=== PATIENT | male | born 1990 | race American Indian/Alaskan Native ===

== ENCOUNTER 2016-10-06 05:18 | Emergency (ER) | payer SELFPAY ==
[2016-10-06] MEDS ORDERED: TYLENOL ONE (05:45)
[2016-10-06 05:55] VITALS: BP 130/87
[2016-10-06] MEDS ORDERED: TYLENOL PO ONE (05:55)
== END 2016-10-06 06:46 | disposition left against medical advice (07) ==
LOC: ED 05:18
DX: R68.84 Jaw pain (principal); Z53.21 Procedure and treatment not carried out due to patient leaving prior to being seen by health care provider

== ENCOUNTER 2016-11-16 09:32 | Emergency (ER) | payer OTHER ==
[2016-11-16 09:53] VITALS: BP 136/91
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
== END 2016-11-16 10:33 | disposition home or self-care (01) ==
LOC: ED 09:32
DX: S46.911A Strain of unspecified muscle, fascia and tendon at shoulder and upper arm level, right arm, initial encounter (principal); V43.62XA Car passenger injured in collision with other type car in traffic accident, initial encounter; W22.12XA Striking against or struck by front passenger side automobile airbag, initial encounter; Y93.89 Activity, other specified; Y99.9 Unspecified external cause status; Y92.410 Unspecified street and highway as the place of occurrence of the external cause
CPT/HCPCS: 99282

== ENCOUNTER 2016-11-22 10:46 | Emergency (ER) | payer SELFPAY ==
[2016-11-22 11:20] VITALS: BP 142/93
[2016-11-22] MEDS ORDERED: DELTASONE PO ONE (12:35)
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
== END 2016-11-22 13:37 | disposition home or self-care (01) ==
LOC: ED 10:46
DX: S39.012D Strain of muscle, fascia and tendon of lower back, subsequent encounter (principal); M62.830 Muscle spasm of back; F12.10 Cannabis abuse, uncomplicated; Z87.891 Personal history of nicotine dependence; V49.59XD Passenger injured in collision with other motor vehicles in traffic accident, subsequent encounter; Y93.9 Activity, unspecified; Y92.9 Unspecified place or not applicable; Y99.9 Unspecified external cause status
CPT/HCPCS: 72100; 99283; J7512

== ENCOUNTER 2016-12-18 04:24 | Emergency (ER) | payer OTHER ==
[2016-12-18 05:33] VITALS: BP 148/96
--- NOTE | 2016-12-18 06:28 | Emergency Department Report ---
HPI - General Chief Complaint: Urogenital-Male Time Seen by Provider: 12/18/16 05:31 - HPI HPI: 26-year-old male presents easy complaining of penile discharge for the past 2 weeks. Patient states prior to that he had had unprotected sex. His partner. Patient states he he's having urinary frequency and has that frequently. Patient also relates aching this penis. Patient denies fevers/chills/nausea/ vomiting/dysuria/abdominal pain/rectal complaint/Cordarone pain or swelling. ED Past Medical Hx - Past Medical History Previous Medical History?: No Additional medical history: back - Surgical History Past Surgical History?: No - Social History Smoking Status: Never Smoker Substance Use Type: None - Medications Home Medications: Home Medications Medication Instructions Recorded Confirmed Last Taken Type Ibuprofen [Motrin 800 MG tab] 800 mg PO Q8HR PRN #30 tablet 11/16/16 Unknown Rx methOCARBAMOL [Robaxin TAB] 500 mg PO Q8H PRN #15 tab 11/16/16 Unknown Rx methylPREDNISolone [Medrol] 4 mg PO DAILY #1 tab.ds.pk 11/22/16 Unknown Rx traMADol [Ultram 50 MG tab] 50 mg PO Q6HR PRN #15 tablet 11/22/16 Unknown Rx Sulfamethoxazole/Trimethoprim 1 each PO BID #14 tablet 12/18/16 Unknown Rx [Bactrim DS TAB] ED Review of Systems ROS: Stated complaint: PENILE DISCHARGE Other details as noted in HPI Constitutional: denies: chills, fever Eyes: denies: eye pain, eye discharge, vision change ENT: denies: ear pain, throat pain Respiratory: denies: cough, shortness of breath, wheezing Cardiovascular: denies: chest pain, palpitations Endocrine: no symptoms reported Gastrointestinal: denies: abdominal pain, nausea, diarrhea Genitourinary: frequency, discharge. denies: urgency, dysuria, hematuria, testicular pain, testicular mass Musculoskeletal: denies: back pain, joint swelling, arthralgia Skin: denies: rash, lesions Neurological: denies: headache, weakness, paresthesias Psychiatric: denies: anxiety, depression Hematological/Lymphatic: denies: easy bleeding, easy bruising Physical Exam - Physical Exam Vital Signs: Vital Signs 12/18/16 05:11 Temperature 98 F Pulse Rate 85 Respiratory 18 Rate Blood Pressure 148/96 [Right] O2 Sat by Pulse 100 Oximetry Physical Exam: GENERAL: Alert and oriented x3, no apparent distress, Normal Gait, atraumatic. HEAD: Head is normocephalic and a-traumatic. NECK: Supple. Non edematous, No carotid bruits. No lymphadenopathy or thyromegaly. No C-spine tenderness LUNGS: Symetrical with respiration, No wheezing, no rales or crackles, CTAB. HEART: S1, S2 present, regular rate and rhythm without murmur, no rubs, no gallops. ABDOMEN: No organomegaly was noted,Positive bowel sounds, soft, and non- distended. . Nontender to palpation on all Quadrants, NO CVA tenderness. UROGENITAL: No scrotal mass, Scrotum non tender to palpation bilaterally, no hernia, no scars or penile discharge. SKIN: Warm and dry, No lesions, No ulceration or induration present. ED Course Vital Signs 12/18/16 05:11 Temperature 98 F Pulse Rate 85 Respiratory 18 Rate Blood Pressure 148/96 [Right] O2 Sat by Pulse 100 Oximetry ED Medical Decision Making - Medical Decision Making 26-year-old male presents with STD exposure. ED course: Analysis and gonorrhea and Chlamydia cultures obtained. Urinalysis positive for leukorrhea Patient received 250 mg of Rocephin, azithromycin 1 g, Flagyl 2 g. Discussed with patient possible STD due to exposure. Discussed with patient findings and treatment Discussed prophylaxis treatment patient is to abstain from sex 7-10 days as treatment. Discussed patient partner knowledge and treatment. Discussed the follow-up with the health department for further STD testing. Patient's alert and oriented times 3. Vital signs are normal patient is in no acute discharge. Patient will be discharged home with instructions. Critical care attestation.: If time is entered above; I have spent that time in minutes in the direct care of this critically ill patient, excluding procedure time. ED Disposition Clinical Impression: STD exposure UTI (urinary tract infection) Qualifiers: Urinary tract infection type: acute cystitis Hematuria presence: with hematuria Qualified Code(s): N30.01 - Acute cystitis with hematuria Disposition: DISCHARGED TO HOME OR SELFCARE Is pt being admited?: No Does the pt Need Aspirin: No Condition: Stable Instructions: Sexually Transmitted Diseases (ED), Safe Sex (ED), Urinary Tract Infection in Men (ED) Additional Instructions: take your medication as prescribed follow-up with her primary care doctor Prescriptions: Sulfamethoxazole/Trimethoprim [Bactrim DS TAB] 1 each PO BID #14 tablet Referrals: PRIMARY CARE, [Primary Care Provider] - 3-5 Days [facility] [Outside] - 3-5 Days [facility] [Outside] - 3[facility] Days [facility] - 3-5 Days Forms: Work/School Release Form(ED) Time of Disposition: 07:00
[2016-12-18 06:55] LABS: Bilirubin,Urine NEG (Negative); Blood,Urine NEG (Negative); Ketones,Urine NEG (Negative); Leukocyte Esterase,Urine MOD (Negative); Nitrite,Urine NEG (Negative); Protein,Urine <15 mg/dL mg/dL (Negative); Urobilinogen,Urine < 2.0 mg/dL (<2.0)
[2016-12-18] MEDS ORDERED: ZITHROMAX PO ONE (06:57)
[2016-12-18] MEDS ORDERED: ROCEPHIN IM ONE (06:57)
[2016-12-18] MEDS ORDERED: FLAGYL PO ONE (06:57)
[2016-12-18] MEDS ORDERED: XYLOCAINE 1% MPF 5 mL INFILTRATI ONE (06:57)
== END 2016-12-18 07:39 | disposition home or self-care (01) ==
LOC: ED 04:24
DX: N30.01 Acute cystitis with hematuria (principal); Z20.2 Contact with and (suspected) exposure to infections with a predominantly sexual mode of transmission
CPT/HCPCS: 81001; 87591; 96372; 99283; J0696

== ENCOUNTER 2017-05-04 00:19 | Emergency (ER) | payer OTHER ==
[2017-05-04 00:32] VITALS: BP 143/91
--- NOTE | 2017-05-04 01:33 | XRay Report ---
FINAL REPORT EXAM: XR CHEST ROUTINE 2V HISTORY: upper resp TECHNIQUE: PA and lateral views of the chest were submitted. FINDINGS: Heart size and mediastinum appear normal. The lungs are clear. Pleural fluid is not seen. The bones and soft tissues appear normal. IMPRESSION: Normal chest.
--- NOTE | 2017-05-04 03:48 | Emergency Department Report ---
Upper Respiratory HPI - HPI Chief Complaint: Upper Respiratory Infection Stated Complaint: CP Time Seen by Provider: 05/04/17 03:42 Duration: 4 Days URI Symptoms: Rhinorrhea: Yes, Sore Throat: Yes, Ear Pain: Yes, Cough: Yes, Shortness of Breath: No, Sick Contacts: No, Unable to Take Fluids: No, Urine Output Abnormal: No, Listless Behavior: No - Home Meds and Allergies Home Medications: Previous Rx's Medication Instructions Recorded Last Taken Type Ibuprofen [Motrin 800 MG tab] 800 mg PO Q8HR PRN #30 tablet 11/16/16 Unknown Rx methOCARBAMOL [Robaxin TAB] 500 mg PO Q8H PRN #15 tab 11/16/16 Unknown Rx methylPREDNISolone [Medrol] 4 mg PO DAILY #1 tab.ds.pk 11/22/16 Unknown Rx traMADol [Ultram 50 MG tab] 50 mg PO Q6HR PRN #15 tablet 11/22/16 Unknown Rx Sulfamethoxazole/Trimethoprim 1 each PO BID #14 tablet 12/18/16 Unknown Rx [Bactrim DS TAB] ALBUTEROL Inhaler [ProAir HFA 2 puff IH QID PRN #1 inhalation 05/04/17 Unknown Rx Inhaler] Codeine Phosphate/Guaifenesin 5 ml PO TID PRN #120 ml 05/04/17 Unknown Rx [Guaifen-Codeine 100-10 mg/5 ml] Ibuprofen 800 mg PO TID PRN #30 tablet 05/04/17 Unknown Rx predniSONE [Deltasone] 40 mg PO QDAY #10 tab 05/04/17 Unknown Rx Allergies/Adverse Reactions: Allergies Allergy/AdvReac Type Severity Reaction Status Date / Time No Known Allergies Allergy Verified 11/16/16 09:50 ED Review of Systems ROS: Stated complaint: CP Other details as noted in HPI Constitutional: chills, malaise. denies: weakness Eyes: denies: eye pain, eye discharge, vision change ENT: ear pain, throat pain, congestion. denies: dental pain, hearing loss, epistaxis Respiratory: cough, wheezing Cardiovascular: denies: chest pain, palpitations, paroxysmal nocturnal dyspnea Endocrine: no symptoms reported Gastrointestinal: denies: abdominal pain, nausea, diarrhea Genitourinary: denies: urgency, dysuria Musculoskeletal: denies: back pain, joint swelling, arthralgia Skin: denies: rash, lesions Neurological: denies: headache, weakness, paresthesias Psychiatric: denies: anxiety, depression Hematological/Lymphatic: denies: easy bleeding, easy bruising ED Past Medical Hx - Past Medical History Previous Medical History?: No Additional medical history: back - Surgical History Past Surgical History?: No - Social History Smoking Status: Former Smoker Substance Use Type: None - Medications Home Medications: Home Medications Medication Instructions Recorded Confirmed Last Taken Type Ibuprofen [Motrin 800 MG tab] 800 mg PO Q8HR PRN #30 tablet 11/16/16 Unknown Rx methOCARBAMOL [Robaxin TAB] 500 mg PO Q8H PRN #15 tab 11/16/16 Unknown Rx methylPREDNISolone [Medrol] 4 mg PO DAILY #1 tab.ds.pk 11/22/16 Unknown Rx traMADol [Ultram 50 MG tab] 50 mg PO Q6HR PRN #15 tablet 11/22/16 Unknown Rx Sulfamethoxazole/Trimethoprim 1 each PO BID #14 tablet 12/18/16 Unknown Rx [Bactrim DS TAB] ALBUTEROL Inhaler [ProAir HFA 2 puff IH QID PRN #1 inhalation 05/04/17 Unknown Rx Inhaler] Codeine Phosphate/Guaifenesin 5 ml PO TID PRN #120 ml 05/04/17 Unknown Rx [Guaifen-Codeine 100-10 mg/5 ml] Ibuprofen 800 mg PO TID PRN #30 tablet 05/04/17 Unknown Rx predniSONE [Deltasone] 40 mg PO QDAY #10 tab 05/04/17 Unknown Rx ED Bronchiolitis Physical Exam - Exam General: Vital signs noted. No distress. Alert and acting appropriately. HEENT: Yes Pharyngeal Erythema, Yes Rhinorrhea, No Conjuctival Injection, No Dry Mucous Membranes Ear: Neither TM Bulge, Neither TM Erythema, Neither EAC Discharge Neck: No Adenopathy, No Rigidity Lungs: Yes Clear Lung Sounds, Yes Good Air Exchange, Yes Cough, No Wheezes, No Stridor, No Nasal Flaring, No Retractions, No Use of Accessory Muscles Heart: Yes Regular, No Murmur Abdomen: Yes Normal Bowel Sounds, No Tenderness, No Peritoneal Signs Skin: No Rash, No Eczema Neurologic: Alert and oriented, no deficits. Musculoskeletal: Unremarkable. ED Bronchiolitis Tests - Testing Testing: CXR: Normal/Negative (no infiltrates no opacities , normal chest xray ) ED Physical Exam - General Limitations: No Limitations General appearance: alert, in no apparent distress - Head Head exam: Present: atraumatic, normocephalic, normal inspection - Eye Eye exam: Present: normal appearance, PERRL, EOMI Pupils: Present: normal accommodation - ENT ENT exam: Present: mucous membranes moist, TM's normal bilaterally, normal external ear exam - Expanded ENT Exam Expanded Mouth exam: Present: tongue normal. Absent: muffled voice, tongue elevation, laceration Throat exam: Positive: tonsillar erythema, tonsillomegaly. Negative: tonsillar exudate, R peritonsillar mass, L peritonsillar mass - Neck Neck exam: Present: normal inspection, full ROM. Absent: tenderness, lymphadenopathy, thyromegaly - Respiratory Respiratory exam: Present: normal lung sounds bilaterally. Absent: respiratory distress, wheezes, rhonchi, stridor, chest wall tenderness, decreased breath sounds - Cardiovascular Cardiovascular Exam: Present: regular rate, normal rhythm, normal heart sounds. Absent: systolic murmur, diastolic murmur, rubs, gallop - GI/Abdominal GI/Abdominal exam: Present: soft, normal bowel sounds. Absent: distended, tenderness, guarding, rebound, rigid, organomegaly, mass, bruit, pulsatile mass , hernia - Rectal Rectal exam: Present: deferred - exam: Present: normal inspection - Extremities Exam Extremities exam: Present: normal inspection, full ROM, normal capillary refill. Absent: tenderness, pedal edema, joint swelling, calf tenderness - Back Exam Back exam: Present: normal inspection, full ROM. Absent: tenderness, CVA tenderness (R), CVA tenderness (L), muscle spasm, paraspinal tenderness, vertebral tenderness, rash noted - Neurological Exam Neurological exam: Present: alert, oriented X3, CN II-XII intact, normal gait. Absent: reflexes normal - Psychiatric Psychiatric exam: Present: normal affect, normal mood - Skin Skin exam: Present: warm, dry, intact, normal color. Absent: rash ED Course Vital Signs 05/04/17 00:27 Temperature 98.1 F Pulse Rate 86 Respiratory 18 Rate Blood Pressure 143/91 O2 Sat by Pulse 99 Oximetry ED Medical Decision Making - EKG Data EKG shows normal: sinus rhythm, axis, intervals, QRS complexes Rate: normal - Radiology Data Radiology results: image reviewed normal chest xray - Medical Decision Making pt is a 26 y/o aam with hx of bronchitis present for uri symptoms included head congestino ear and throat jose a with noc chills, malaise wheezing, pt endorses symptomx 1 week and not improving , exam: pt appears ill , cough productive white yellow thick TMs clear bilat no erythema no pain, nose; bilat turbinate erythema boggy clear post nasal drip, pharynx: moderate erythema no exudate no lesion no edema uvula midline no stridor lungs clear at this time no wheezing, CXR: normal , pt is not febrile at this time. plan: refill albuterol inhailer, prednisone, Cheratussin, ibuprofen 800 mg po tid prn pain and fever. pt verbalize agreement and understanding of same. Critical care attestation.: If time is entered above; I have spent that time in minutes in the direct care of this critically ill patient, excluding procedure time. ED Disposition Clinical Impression: Bronchitis URI (upper respiratory infection) Qualifiers: URI type: acute nasopharyngitis (common cold) Qualified Code(s): J00 - Acute nasopharyngitis [common cold] Disposition: TO HOME OR SELFCARE Is pt being admited?: No Does the pt Need Aspirin: No Condition: Good Instructions: Chronic Bronchitis (ED), Cold Symptoms (ED) Prescriptions: ALBUTEROL Inhaler [ProAir HFA Inhaler] 2 puff IH QID PRN #1 inhalation PRN Reason: Shortness Of Breath Codeine Phosphate/Guaifenesin [Guaifen-Codeine 100-10 mg/5 ml] 5 ml PO TID PRN # 120 ml PRN Reason: Cough Ibuprofen 800 mg PO TID PRN #30 tablet PRN Reason: pain fever predniSONE [Deltasone] 40 mg PO QDAY #10 tab Referrals: PRIMARY CARE, [Primary Care Provider] - 3-5 Days Forms: Work/School Release Form(ED) Time of Disposition: 04:06
== END 2017-05-04 04:15 | disposition home or self-care (01) ==
LOC: ED 00:19
DX: J00 Acute nasopharyngitis [common cold] (principal); J40 Bronchitis, not specified as acute or chronic; Z87.891 Personal history of nicotine dependence
CPT/HCPCS: 71020; 93005; 93010; 99283

== ENCOUNTER 2017-06-23 07:13 | Emergency (ER) | payer OTHER | END 2017-06-23 09:45 | disposition left against medical advice (07) | LOC: ED 07:13 | DX: Z53.21 Procedure and treatment not carried out due to patient leaving prior to being seen by health care provider (principal) ==

== ENCOUNTER 2018-08-16 16:49 | Emergency (ER) | payer SELFPAY ==
[2018-08-16 17:04] VITALS: BP 134/86
[2018-08-16] MEDS ORDERED: DELTASONE PO ONE (17:36)
[2018-08-16] MEDS ORDERED: TORADOL IM ONE (17:36)
--- NOTE | 2018-08-16 17:55 | Emergency Department Report ---
ED Neck Pain/Injury HPI - General Chief Complaint: Neck Pain/Injury Stated Complaint: NECK PAIN Time Seen by Provider: 08/16/18 17:34 Mode of arrival: Ambulatory Limitations: No Limitations - History of Present Illness Initial Comments: This is a 28-year-old male nontoxic, well nourished in appearance, no acute signs of distress presents to the ED with c/o of upper back pain. Patient stated that 4 days ago he woke up with pain and has significantly resolved still has slight pain February and is right upper back area. Patient denies any radiation of pain. Patient denies any trauma. Denies any bladder or bowel instability. Patient denies any urinary symptoms. Denies any fever, chills, nausea, vomiting, headache, stiff neck, chest pain or shortness of breath. Patient denies any numbness or tingling. Denies any allergies. Denies significant past medical history. MD Complaint: neck pain, upper back pain -: days(s) (4) Place: home Severity: mild Severity scale (0 -10): 3 Quality: aching Consistency: constant Improves With: immobilization Worsens With: movement of neck Associated Symptoms: none. denies: headache, fever, numbness, tingling, weakness, vertigo, difficulty walking, swollen glands, difficulty swallowing, nausea, vomiting Treatments Prior to Arrival: none - Related Data Previous Rx's Medication Instructions Recorded Last Taken Type Ibuprofen [Motrin 800 MG tab] 800 mg PO Q8HR PRN #30 tablet 11/16/16 Unknown Rx methOCARBAMOL [Robaxin TAB] 500 mg PO Q8H PRN #15 tab 11/16/16 Unknown Rx methylPREDNISolone [Medrol] 4 mg PO DAILY #1 tab.ds.pk 11/22/16 Unknown Rx traMADol [Ultram 50 MG tab] 50 mg PO Q6HR PRN #15 tablet 11/22/16 Unknown Rx Sulfamethoxazole/Trimethoprim 1 each PO BID #14 tablet 12/18/16 Unknown Rx [Bactrim DS TAB] ALBUTEROL Inhaler (OR & NICU) 2 puff IH QID PRN #1 inhalation 05/04/17 Unknown Rx [ProAir HFA Inhaler] Codeine Phosphate/Guaifenesin 5 ml PO TID PRN #120 ml 05/04/17 Unknown Rx [Guaifen-Codeine 100-10 mg/5 ml] Ibuprofen 800 mg PO TID PRN #30 tablet 05/04/17 Unknown Rx predniSONE [Deltasone] 40 mg PO QDAY #10 tab 05/04/17 Unknown Rx Dicyclomine [Bentyl] 10 mg PO QID PRN #30 capsule 05/16/18 Unknown Rx Ondansetron [Zofran Odt] 4 mg PO TID PRN #12 tab.rapdis 05/16/18 Unknown Rx Cyclobenzaprine [Flexeril] 10 mg PO QHS PRN #10 tablet 08/16/18 Unknown Rx Ibuprofen [Motrin] 600 mg PO Q8H PRN #20 tablet 08/16/18 Unknown Rx Allergies Allergy/AdvReac Type Severity Reaction Status Date / Time No Known Allergies Allergy Verified 11/16/16 09:50 ED Review of Systems ROS: Stated complaint: NECK PAIN Other details as noted in HPI Constitutional: denies: chills, fever Eyes: denies: eye pain, eye discharge, vision change ENT: denies: ear pain, throat pain Respiratory: denies: cough, shortness of breath, wheezing Cardiovascular: denies: chest pain, palpitations Endocrine: no symptoms reported Gastrointestinal: denies: abdominal pain, nausea, diarrhea Genitourinary: denies: urgency, dysuria Musculoskeletal: other (upper back pain). denies: back pain, joint swelling, arthralgia Skin: denies: rash, lesions Neurological: denies: headache, weakness, paresthesias Psychiatric: denies: anxiety, depression Hematological/Lymphatic: denies: easy bleeding, easy bruising ED Past Medical Hx - Past Medical History Previous Medical History?: No Additional medical history: back - Surgical History Past Surgical History?: No - Social History Smoking Status: Never Smoker Substance Use Type: Alcohol - Medications Home Medications: Home Medications Medication Instructions Recorded Confirmed Last Taken Type Ibuprofen [Motrin 800 MG tab] 800 mg PO Q8HR PRN #30 tablet 11/16/16 Unknown Rx methOCARBAMOL [Robaxin TAB] 500 mg PO Q8H PRN #15 tab 11/16/16 Unknown Rx methylPREDNISolone [Medrol] 4 mg PO DAILY #1 tab.ds.pk 11/22/16 Unknown Rx traMADol [Ultram 50 MG tab] 50 mg PO Q6HR PRN #15 tablet 11/22/16 Unknown Rx Sulfamethoxazole/Trimethoprim 1 each PO BID #14 tablet 12/18/16 Unknown Rx [Bactrim DS TAB] ALBUTEROL Inhaler (OR & NICU) 2 puff IH QID PRN #1 inhalation 05/04/17 Unknown Rx [ProAir HFA Inhaler] Codeine Phosphate/Guaifenesin 5 ml PO TID PRN #120 ml 05/04/17 Unknown Rx [Guaifen-Codeine 100-10 mg/5 ml] Ibuprofen 800 mg PO TID PRN #30 tablet 05/04/17 Unknown Rx predniSONE [Deltasone] 40 mg PO QDAY #10 tab 05/04/17 Unknown Rx Dicyclomine [Bentyl] 10 mg PO QID PRN #30 capsule 05/16/18 Unknown Rx Ondansetron [Zofran Odt] 4 mg PO TID PRN #12 tab.rapdis 05/16/18 Unknown Rx Cyclobenzaprine [Flexeril] 10 mg PO QHS PRN #10 tablet 08/16/18 Unknown Rx Ibuprofen [Motrin] 600 mg PO Q8H PRN #20 tablet 08/16/18 Unknown Rx ED Physical Exam - General Limitations: No Limitations General appearance: alert, in no apparent distress - Head Head exam: Present: atraumatic, normocephalic - Neck Neck exam: Present: normal inspection, full ROM. Absent: tenderness, meningismus, lymphadenopathy - Extremities Exam Extremities exam: Present: normal inspection, full ROM, normal capillary refill. Absent: tenderness - Back Exam Back exam: Present: normal inspection, full ROM, paraspinal tenderness (left ce rvical paraspinal). Absent: tenderness, CVA tenderness (R), CVA tenderness (L), muscle spasm, vertebral tenderness, rash noted - Expanded Back Exam Expanded Back exam: Absent: saddle anesthesia Back exam: Negative Straight Leg Raising: Right, Left - Neurological Exam Neurological exam: Present: alert, oriented X3 - Psychiatric Psychiatric exam: Present: normal affect, normal mood - Skin Skin exam: Present: warm, dry, intact, normal color. Absent: rash ED Course Vital Signs 08/16/18 17:00 Temperature 98.2 F Pulse Rate 83 Respiratory 18 Rate Blood Pressure 134/86 O2 Sat by Pulse 99 Oximetry - Reevaluation(s) Reevaluation #1: 08/16/18 18:07 Patient is speaking in full sentences with no signs of distress noted. ED Medical Decision Making - Medical Decision Making This is a 28-year-old male that presents with upper back strain. Patient is stable was examined by me. There is no spinal tenderness. There is no cauda equina syndrome during examination. No bladder or bowel instability. Patient received Toradol 60 mg IM and prednisone in the ED which stated his symptoms has resolved and subsided. Patient is discharged with muscle relaxant and Motrin. Patient was instructed not to operate any machinery while taking muscle relaxant as they cause her drowsiness. Patient was referred to Follow-up with a primary care doctor in 3-5 days or if symptoms worsen and continue return to emergency room as soon as possible. At time of discharge, the patient does not seem toxic or ill in appearance. No acute signs of distress noted. Patient agrees to discharge treatment plan of care. No further questions noted by the patient. This chart is dictated with using [employer] Dictation Program Critical care attestation.: If time is entered above; I have spent that time in minutes in the direct care of this critically ill patient, excluding procedure time. ED Disposition Clinical Impression: Muscle strain of upper back Disposition: DC-01 TO HOME OR SELFCARE Is pt being admited?: No Does the pt Need Aspirin: No Condition: Stable Instructions: Muscle Strain (ED), Cyclobenzaprine (By mouth) Additional Instructions: Follow-up with your primary care doctor in 3-5 days or if symptoms worsen such as bladder or bowel stability, chest pain, short of breath, numbness or tingling sensation in extremities, headache, dizziness, visual changes, nausea vomiting, or abdominal pain, return back to emergency room as was possible. Take ibuprofen and Flexeril as prescribed. Do not operate heavy machinery while taking Flexeril due to sedation Prescriptions: Cyclobenzaprine [Flexeril] 10 mg PO QHS PRN #10 tablet PRN Reason: Muscle Spasm Ibuprofen [Motrin] 600 mg PO Q8H PRN #20 tablet PRN Reason: Pain Referrals: PRIMARY CARE, [Referring] - 3-5 Days PRESTON VAZQUEZ MD [Staff Physician] - 3-5 Days [facility] [Outside] - 3-5 Days [facility] [Outside] - 3-5 Days Forms: Work/School Release Form(ED)
== END 2018-08-16 18:16 | disposition home or self-care (01) ==
LOC: ED 16:49
DX: S29.012A Strain of muscle and tendon of back wall of thorax, initial encounter (principal); X58.XXXA Exposure to other specified factors, initial encounter; Y93.89 Activity, other specified; Y92.89 Other specified places as the place of occurrence of the external cause; Y99.8 Other external cause status
CPT/HCPCS: 96372; 99282; J1885; J7512

== ENCOUNTER 2018-08-30 17:31 | Emergency (ER) | payer SELFPAY ==
--- NOTE | 2018-08-30 17:44 | Emergency Department Report ---
Blank Doc - Documentation Documentation: This is a 28-year-old male that presents with right sided neck pain x2 weeks. Patient is known to me and was seen by me ew weeks ago. Was treated with flexeril and motrin at discharge. Patient stated pain became better but worsened again last week. Patient stated symptoms are intermittent. Denies any injuries or trauma. This initial assessment diagnostic orders/clinical plan/treatment(s) is/are subject to change based on patient's health status, clinical progression and re- assessment by fellow clinical providers in the ED. Further treatment and workup at subsequent clinical providers discretion. Patient/guardians urged not to elope from ED s their condition may be serious if not clinically assessed and managed. Initial orders include: 1-Patient sent to [facility] for further evaluation and treatment.
[2018-08-30] MEDS ORDERED: IBUPROFEN PO ONE (18:06)
[2018-08-30] MEDS ORDERED: FLEXERIL PO ONE (18:06)
--- NOTE | 2018-08-30 18:08 | Emergency Department Report ---
ED Neck Pain/Injury HPI - General Chief Complaint: Neck Pain/Injury Stated Complaint: NECK/SHOULDER PAIN Time Seen by Provider: 08/30/18 17:40 Source: patient Mode of arrival: Ambulatory Limitations: No Limitations - History of Present Illness Initial Comments: Patient her right neck pain 3 weeks. He was here on 08/16/2018 for similar problem. He thinks he strained his muscle. Denies any injury but thinks it is only sleeps. He reports pain is 8 out of 10 and achy without any radiation of pain. Denies any nausea vomiting. Denies any neck stiffness or fever or chills. Denies any chest pain or shortness of breath. Denies any headache or any trauma. Denies any weakness to extremities. Pain is worse with movements and no alleviating factors. MD Complaint: neck pain Onset/Timin -: week(s) Place: home Radiation: right lateral Severity: severe, intermittent, similar to prior neck mel Severity scale (0 -10): 8 Quality: aching Consistency: intermittent Improves With: none Worsens With: movement of neck Context: unknown Associated Symptoms: denies: headache, fever, numbness, tingling, weakness, vertigo, difficulty walking, swollen glands, difficulty swallowing, nausea, vomiting Treatments Prior to Arrival: none - Related Data Previous Rx's Medication Instructions Recorded Last Taken Type Ibuprofen [Motrin 800 MG tab] 800 mg PO Q8HR PRN #30 tablet 11/16/16 Unknown Rx methOCARBAMOL [Robaxin TAB] 500 mg PO Q8H PRN #15 tab 11/16/16 Unknown Rx methylPREDNISolone [Medrol] 4 mg PO DAILY #1 tab.ds.pk 11/22/16 Unknown Rx traMADol [Ultram 50 MG tab] 50 mg PO Q6HR PRN #15 tablet 11/22/16 Unknown Rx Sulfamethoxazole/Trimethoprim 1 each PO BID #14 tablet 12/18/16 Unknown Rx [Bactrim DS TAB] ALBUTEROL Inhaler (OR & NICU) 2 puff IH QID PRN #1 inhalation 05/04/17 Unknown Rx [ProAir HFA Inhaler] Codeine Phosphate/Guaifenesin 5 ml PO TID PRN #120 ml 05/04/17 Unknown Rx [Guaifen-Codeine 100-10 mg/5 ml] Ibuprofen 800 mg PO TID PRN #30 tablet 05/04/17 Unknown Rx predniSONE [Deltasone] 40 mg PO QDAY #10 tab 05/04/17 Unknown Rx Dicyclomine [Bentyl] 10 mg PO QID PRN #30 capsule 05/16/18 Unknown Rx Ondansetron [Zofran Odt] 4 mg PO TID PRN #12 tab.rapdis 05/16/18 Unknown Rx Cyclobenzaprine [Flexeril] 10 mg PO QHS PRN #10 tablet 08/16/18 Unknown Rx Ibuprofen [Motrin] 600 mg PO Q8H PRN #20 tablet 08/16/18 Unknown Rx Cyclobenzaprine [Flexeril] 10 mg PO TID PRN #12 tablet 08/30/18 Unknown Rx Cyclobenzaprine [Flexeril] 10 mg PO TID PRN #12 tablet 08/30/18 Unknown Rx Ibuprofen [Motrin] 800 mg PO Q8HR PRN #12 tablet 08/30/18 Unknown Rx Ibuprofen [Motrin] 800 mg PO Q8HR PRN #12 tablet 08/30/18 Unknown Rx Allergies Allergy/AdvReac Type Severity Reaction Status Date / Time No Known Allergies Allergy Verified 11/16/16 09:50 ED Review of Systems ROS: Stated complaint: NECK/SHOULDER PAIN Other details as noted in HPI Constitutional: denies: chills Eyes: denies: eye pain, eye discharge ENT: denies: ear pain, throat pain, congestion Respiratory: denies: cough, shortness of breath, wheezing Cardiovascular: denies: chest pain, palpitations, edema, syncope Gastrointestinal: denies: abdominal pain, nausea, vomiting Musculoskeletal: myalgia. denies: back pain, joint swelling, arthralgia Skin: denies: rash Neurological: denies: headache, numbness, paresthesias, abnormal gait, vertigo ED Past Medical Hx - Past Medical History Previous Medical History?: Yes Additional medical history: back and neck pain - Surgical History Past Surgical History?: Yes Additional Surgical History: FX right hip - Family History Family history: hypertension - Social History Smoking Status: Never Smoker Substance Use Type: Alcohol - Medications Home Medications: Home Medications Medication Instructions Recorded Confirmed Last Taken Type Ibuprofen [Motrin 800 MG tab] 800 mg PO Q8HR PRN #30 tablet 11/16/16 Unknown Rx methOCARBAMOL [Robaxin TAB] 500 mg PO Q8H PRN #15 tab 11/16/16 Unknown Rx methylPREDNISolone [Medrol] 4 mg PO DAILY #1 tab.ds.pk 11/22/16 Unknown Rx traMADol [Ultram 50 MG tab] 50 mg PO Q6HR PRN #15 tablet 11/22/16 Unknown Rx Sulfamethoxazole/Trimethoprim 1 each PO BID #14 tablet 12/18/16 Unknown Rx [Bactrim DS TAB] ALBUTEROL Inhaler (OR & NICU) 2 puff IH QID PRN #1 inhalation 05/04/17 Unknown Rx [ProAir HFA Inhaler] Codeine Phosphate/Guaifenesin 5 ml PO TID PRN #120 ml 05/04/17 Unknown Rx [Guaifen-Codeine 100-10 mg/5 ml] Ibuprofen 800 mg PO TID PRN #30 tablet 05/04/17 Unknown Rx predniSONE [Deltasone] 40 mg PO QDAY #10 tab 05/04/17 Unknown Rx Dicyclomine [Bentyl] 10 mg PO QID PRN #30 capsule 05/16/18 Unknown Rx Ondansetron [Zofran Odt] 4 mg PO TID PRN #12 tab.rapdis 05/16/18 Unknown Rx Cyclobenzaprine [Flexeril] 10 mg PO QHS PRN #10 tablet 08/16/18 Unknown Rx Ibuprofen [Motrin] 600 mg PO Q8H PRN #20 tablet 08/16/18 Unknown Rx Cyclobenzaprine [Flexeril] 10 mg PO TID PRN #12 tablet 08/30/18 Unknown Rx Cyclobenzaprine [Flexeril] 10 mg PO TID PRN #12 tablet 08/30/18 Unknown Rx Ibuprofen [Motrin] 800 mg PO Q8HR PRN #12 tablet 08/30/18 Unknown Rx Ibuprofen [Motrin] 800 mg PO Q8HR PRN #12 tablet 08/30/18 Unknown Rx ED Physical Exam - General Limitations: No Limitations General appearance: alert, in no apparent distress - Head Head exam: Present: atraumatic, normocephalic, normal inspection, other (normal exam) - Eye Eye exam: Present: normal appearance, PERRL, EOMI Pupils: Present: normal accommodation - ENT ENT exam: Present: normal exam, normal orophraynx, mucous membranes moist, TM's normal bilaterally, normal external ear exam - Neck Neck exam: Present: normal inspection, full ROM (reports pain no movement at right lateral neck), other (no C-spine tenderness). Absent: tenderness, meningismus, lymphadenopathy - Respiratory Respiratory exam: Present: normal lung sounds bilaterally. Absent: respiratory distress, chest wall tenderness - Cardiovascular Cardiovascular Exam: Present: regular rate, normal rhythm, normal heart sounds - Extremities Exam Extremities exam: Present: normal inspection, full ROM, normal capillary refill, other (No cce. + 2 pulses in all extremities, no neurovascular compromise). Absent: tenderness, pedal edema, joint swelling - Back Exam Back exam: Present: normal inspection, other (ambulates without any difficulti es). Absent: tenderness, CVA tenderness (R), CVA tenderness (L), muscle spasm, paraspinal tenderness, vertebral tenderness, rash noted - Neurological Exam Neurological exam: Present: alert, oriented X3, normal gait, reflexes normal, other (no focal deficits). Absent: motor sensory deficit - Psychiatric Psychiatric exam: Present: normal affect, normal mood - Skin Skin exam: Present: warm, dry, intact, normal color. Absent: rash ED Course Vital Signs 08/30/18 08/30/18 17:42 21:42 Temperature 98.3 F 98.4 F Pulse Rate 69 57 L Respiratory 18 18 Rate Blood Pressure 132/86 139/80 O2 Sat by Pulse 100 100 Oximetry - Reevaluation(s) Reevaluation #1: 08/30/18 21:30 Patient was given Motrin 800 mg one tablet by mouth and Flexeril 10mg in Emergency room and moist relief of pain ED Medical Decision Making - Radiology Data Radiology results: report reviewed X-ray C-spine dictated by radiologist report reviewed by myself. Please see report below for details Findings [facility] [address] [place] [address] XRay Report Signed Patient: SARAVANAN PACHECO MR#: [id number] : 1990 Acct:[id number] Age/Sex: 28 / M ADM Date: 08/30/18 Loc: ED Attending Dr: Ordering Physician: BERNY TERRAZAS Date of Service: 08/30/18 Procedure(s): XR spine cervical 2-3V Accession Number(s): [id number] cc: BERNY TERRAZAS Fluoro Time In Minutes: FINAL REPORT EXAM: XR SPINE CERVICAL 2-3V HISTORY: PAIN TO C SPINE TECHNIQUE: Frontal, lateral, odontoid views cervical spine Comparison: None FINDINGS: Bony alignment is normal. The vertebral heights and disc spaces are maintained. There is no evidence of fracture or subluxation. The paraspinous soft tissues are unremarkable. IMPRESSION: 1. No plain film evidence of fracture or subluxation. Subtle cervical spine fractures can be missed with plain film imaging. If there is a persistent clinical concern for fracture, CT imaging would be helpful. Transcribed By: ED Dictated By: ARLETH LOPEZ MD Electronically Authenticated By: ARLETH LOPEZ MD Signed Date/Time: 08/30/181923 DD/ 22 TD/TT: 08/30/181922 - Medical Decision Making This is a 28-year-old male he is here for the second time regarding i left neck pain. He was seen on 08/16/2018 and treated with Flexeril and ibuprofen and now he is back. Please refer to exam notes for details X-ray C-spine: 1. No plain film evidence of fracture or subluxation. Subtle cervical spine fractures can be missed with plain film imaging. If there is a persistent clinical concern for fracture, CT imaging would be helpful. Assessment/plan 1: Neck muscle strain-patient given Flexeril and Motrin emergency room and discharged from emergency room with his family in stable condition. Vital signs are stable afebrile. I gave him results of his x-ray included in radiology suggestion and I told him he will need to follow up with his primary care and also orthopedic doctor in 2 days and he voiced understanding. Pain is controlled and his vital signs are stable. Patient discharged home with prescription for Flexeril and Motrin. - Differential Diagnosis FX, subluxation, degenerative disc disease, strain, MSK pain Critical care attestation.: If time is entered above; I have spent that time in minutes in the direct care of this critically ill patient, excluding procedure time. ED Disposition Clinical Impression: Neck muscle strain Qualifiers: Encounter type: initial encounter Qualified Code(s): S16.1XXA - Strain of muscle, fascia and tendon at neck level, initial encounter Disposition: TO HOME OR SELFCARE Is pt being admited?: No Does the pt Need Aspirin: No Condition: Stable Instructions: Muscle Strain (ED) Additional Instructions: Please follow up with orthopedic doctor as discussed. Call tomorrow to schedule an appointment for visit and 2 days. You were treated for neck strain on 08/16/2019 1990 referred so you will still need to follow up with orthopedic doctor because your x-ray is negative for any bony abnormality. Take Motrin for pain and Flexeril for muscle strain. If you condition worsens, return to the emergency room Prescriptions: Cyclobenzaprine [Flexeril] 10 mg PO TID PRN #12 tablet PRN Reason: Muscle Spasm Cyclobenzaprine [Flexeril] 10 mg PO TID PRN #12 tablet PRN Reason: Muscle Spasm Ibuprofen [Motrin] 800 mg PO Q8HR PRN #12 tablet PRN Reason: pain Ibuprofen [Motrin] 800 mg PO Q8HR PRN #12 tablet PRN Reason: pain Referrals: [facility] MD IMER [Primary Care Provider] - 09/01/18 ROBIN MARR MD [Staff Physician] - 09/01/18 Forms: Work/School Release Form(ED)
--- NOTE | 2018-08-30 19:24 | XRay Report ---
FINAL REPORT EXAM: XR SPINE CERVICAL 2-3V HISTORY: PAIN TO C SPINE TECHNIQUE: Frontal, lateral, odontoid views cervical spine Comparison: None FINDINGS: Bony alignment is normal. The vertebral heights and disc spaces are maintained. There is no evidence of fracture or subluxation. The paraspinous soft tissues are unremarkable. IMPRESSION: 1. No plain film evidence of fracture or subluxation. Subtle cervical spine fractures can be missed with plain film imaging. If there is a persistent clini hiram concern for fracture, CT imaging would be helpful.
[2018-08-30 21:46] VITALS: BP 139/80
== END 2018-08-30 21:47 | disposition home or self-care (01) ==
LOC: ED 17:31
DX: S16.1XXA Strain of muscle, fascia and tendon at neck level, initial encounter (principal); X58.XXXA Exposure to other specified factors, initial encounter; Y93.89 Activity, other specified; Y92.89 Other specified places as the place of occurrence of the external cause; Y99.8 Other external cause status
CPT/HCPCS: 72040

== ENCOUNTER 2019-05-10 02:49 | Emergency (ER) | payer SELFPAY ==
[2019-05-10 03:04] VITALS: BP 147/96
[2019-05-10] MEDS ORDERED: XYLOCAINE 1% MPF 5 mL INFILTRATI ONE (03:20)
[2019-05-10] MEDS ORDERED: ROCEPHIN IM ONE (03:20)
[2019-05-10] MEDS ORDERED: ZITHROMAX PO ONE (03:21)
--- NOTE | 2019-05-10 03:25 | Emergency Department Report ---
HPI - General Chief Complaint: Urogenital-Male Time Seen by Provider: 05/10/19 03:16 - HPI HPI: 28-year-old male presents to the emergency department with a 2 to three-day history of some mild clear discharge from the penis as well as some itching and burning sensation that he says is "inside of my penis." Patient is sexually active and does not always use protection. He has one previous history of gonorrhea about 8 years ago. No penile lesions. No testicular pain. No fever. He has not taken anything for her symptoms prior to presentation. ED Past Medical Hx - Past Medical History Previous Medical History?: Yes Additional medical history: back and neck pain - Surgical History Past Surgical History?: Yes Additional Surgical History: FX right hip - Social History Smoking Status: Never Smoker Substance Use Type: None - Medications Home Medications: Home Medications Medication Instructions Recorded Confirmed Last Taken Type Ibuprofen [Motrin 800 MG tab] 800 mg PO Q8HR PRN #30 tablet 11/16/16 Unknown Rx methOCARBAMOL [Robaxin TAB] 500 mg PO Q8H PRN #15 tab 11/16/16 Unknown Rx methylPREDNISolone [Medrol] 4 mg PO DAILY #1 tab.ds.pk 11/22/16 Unknown Rx traMADol [Ultram 50 MG tab] 50 mg PO Q6HR PRN #15 tablet 11/22/16 Unknown Rx Sulfamethoxazole/Trimethoprim 1 each PO BID #14 tablet 12/18/16 Unknown Rx [Bactrim DS TAB] ALBUTEROL Inhaler (OR & NICU) 2 puff IH QID PRN #1 inhalation 05/04/17 Unknown Rx [ProAir HFA Inhaler] Codeine Phosphate/Guaifenesin 5 ml PO TID PRN #120 ml 05/04/17 Unknown Rx [Guaifen-Codeine 100-10 mg/5 ml] Ibuprofen 800 mg PO TID PRN #30 tablet 05/04/17 Unknown Rx predniSONE [Deltasone] 40 mg PO QDAY #10 tab 05/04/17 Unknown Rx Dicyclomine [Bentyl] 10 mg PO QID PRN #30 capsule 05/16/18 Unknown Rx Ondansetron [Zofran Odt] 4 mg PO TID PRN #12 tab.rapdis 05/16/18 Unknown Rx Cyclobenzaprine [Flexeril] 10 mg PO QHS PRN #10 tablet 08/16/18 Unknown Rx Ibuprofen [Motrin] 600 mg PO Q8H PRN #20 tablet 08/16/18 Unknown Rx Cyclobenzaprine [Flexeril] 10 mg PO TID PRN #12 tablet 08/30/18 Unknown Rx Cyclobenzaprine [Flexeril] 10 mg PO TID PRN #12 tablet 08/30/18 Unknown Rx Ibuprofen [Motrin] 800 mg PO Q8HR PRN #12 tablet 08/30/18 Unknown Rx Ibuprofen [Motrin] 800 mg PO Q8HR PRN #12 tablet 08/30/18 Unknown Rx ED Review of Systems ROS: Stated complaint: DISCHARGE FROM PENIS Other details as noted in HPI Comment: All other systems reviewed and negative Constitutional: denies: chills, fever Genitourinary: discharge. denies: dysuria, hematuria, testicular pain Physical Exam - Physical Exam Vital Signs: Vital Signs 05/10/19 02:57 Temperature 98.0 F Pulse Rate 101 H Respiratory 18 Rate Blood Pressure 147/96 O2 Sat by Pulse 99 Oximetry Physical Exam: GENERAL: The patient is well-developed well-nourished. HENT: Normocephalic. Atraumatic. Patient has moist mucous membranes. EYES: Extraocular motions are intact. NECK: Supple. Trachea is midline. ABDOMEN: There is no abdominal distention. SKIN: Skin is warm and dry. NEURO: The patient is awake, alert, and oriented. The patient is cooperative. The patient has no focal neurologic deficits. Normal speech. MUSCULOSKELETAL: There is no tenderness or deformity. There is no evidence of acute injury. : Deferred ED Course Vital Signs 05/10/19 02:57 Temperature 98.0 F Pulse Rate 101 H Respiratory 18 Rate Blood Pressure 147/96 O2 Sat by Pulse 99 Oximetry ED Medical Decision Making - Medical Decision Making This patient presents with the complaint of some burning and itching just inside of the urethra as well as some mild clear penile discharge. This sounds consistent with urethritis. The patient will be treated empirically with Rocephin and azithromycin. We discussed safe sex practices. He understands to avoid any sexual contact for these 1 week after getting these medications. - Differential Diagnosis urethritis, UTI, [place] Critical Care Time: No Critical care attestation.: If time is entered above; I have spent that time in minutes in the direct care of this critically ill patient, excluding procedure time. ED Disposition Clinical Impression: Urethritis Disposition: DC-01 TO HOME OR SELFCARE Is pt being admited?: No Condition: Stable Instructions: Nonspecific Urethritis in Men (ED) Additional Instructions: Please follow-up with a primary care physician in the next few days. Please utilize safe sex practices. Avoid any sexual contact for least 1 week after getting these medications. Return to the emergency Department with any wor sening of your symptoms or any acute distress. Referrals: [facility] [Outside] - 3-5 Days [facility] [Outside] - 3-5 Days Forms: STI Treatment and Prevention Time of Disposition: 03:24
== END 2019-05-10 03:55 | disposition home or self-care (01) ==
LOC: ED 02:49
DX: N34.2 Other urethritis (principal); Z79.899 Other long term (current) drug therapy
CPT/HCPCS: 96372; 99282; J0696